=== PATIENT | male | born 1990 | race African-American/Black ===

== ENCOUNTER 2016-12-03 02:19 | Emergency (ER) | payer SELFPAY ==
[~2016-12-03] VITALS: Ht 170.2 cm; Wt 90.9 kg
[~2016-12-03 02:19] MED LIST: AMOXICILLIN 8751 TAB PO; LORTAB 5/500 501 TAB PO; NORCO 325 MG-51 TAB PO; PERCOCET 325 MG1 TA2 PO; TUSS PO; ZITHROMAX 250M250 MG PO
[2016-12-03 02:20] VITALS: BP 117/90; TEMP 96.6
[2016-12-03] MEDS ORDERED: NORCO 325 MG-51 TAB PO (02:58)
[2016-12-03] MEDS ORDERED: MOTRIN 800800 MG/TAB PO (02:58)
[2016-12-03 03:04] VITALS: PULSE 82
== END 2016-12-03 03:04 | disposition home or self-care (01) ==
LOC: COL.ER 02:19
DX: S42.255A Nondisplaced fracture of greater tuberosity of left humerus, initial encounter for closed fracture (principal); W50.0XXA Accidental hit or strike by another person, initial encounter; Y92.89 Other specified places as the place of occurrence of the external cause

== ENCOUNTER → 2016-12-05 | Outpatient (CLI) | payer SELFPAY ==
[~2016-12-05] MED LIST changes: +MOTRIN 800800 MG/TAB PO
== END ==
LOC: COL.RAD 13:52
DX: S42.255A Nondisplaced fracture of greater tuberosity of left humerus, initial encounter for closed fracture (principal)

== ENCOUNTER 2017-01-30 11:15 | Outpatient (RCR) | payer SELFPAY | END 2017-02-15 09:11 | disposition home or self-care (01) | LOC: WSPT 11:15 | DX: S42.92XD Fracture of left shoulder girdle, part unspecified, subsequent encounter for fracture with routine healing (principal); X58.XXXD Exposure to other specified factors, subsequent encounter | CPT/HCPCS: G0283-GP ==

== ENCOUNTER 2017-08-21 10:18 | Emergency (ER) | payer SELFPAY ==
[~2017-08-21] VITALS: Ht 170.2 cm; Wt 90.0 kg
[2017-08-21 10:20] VITALS: BP 125/62; PULSE 84; TEMP 98.3
[2017-08-21] MEDS ORDERED: PREDNISONE20 MG PO (10:33)
[2017-08-21] MEDS ORDERED: ZITHROMAX Z PA250 MG PO (10:33)
== END 2017-08-21 11:07 | disposition home or self-care (01) ==
LOC: COL.ER 10:18
DX: J40 Bronchitis, not specified as acute or chronic (principal); J98.01 Acute bronchospasm

== ENCOUNTER 2017-10-30 11:34 | Emergency (ER) | payer BC ==
[~2017-10-30] VITALS: Ht 170.2 cm; Wt 91.4 kg
[~2017-10-30 11:34] MED LIST changes: +PREDNISONE20 MG PO; +ZITHROMAX Z PA250 MG PO
[2017-10-30 11:44] VITALS: BP 130/74; PULSE 94; TEMP 98.8
[2017-10-30 12:23] LABS: INFLUENZA A NEGATIVE; INFLUENZA B NEGATIVE
[2017-10-30] MEDS ORDERED: TAMIFLU 75MG75 MG PO (12:34)
[2017-10-30] MEDS ORDERED: PREDNISONE20 MG PO (12:34)
== END 2017-10-30 12:50 | disposition home or self-care (01) ==
LOC: COL.ER 11:34
PROVIDERS: Nurse Practitioner
DX: J11.1 Influenza due to unidentified influenza virus with other respiratory manifestations (principal); J45.909 Unspecified asthma, uncomplicated

== ENCOUNTER 2018-08-06 12:06 | Emergency (ER) | payer BC ==
[~2018-08-06] VITALS: Ht 172.7 cm; Wt 90.9 kg
[~2018-08-06 12:06] MED LIST changes: +TAMIFLU 75MG75 MG PO
[2018-08-06 12:11] VITALS: BP 138/76; PULSE 87; TEMP 99.4
[2018-08-06] MEDS ORDERED: ZITHROMAX Z PA250 MG PO (12:51)
[2018-08-06] MEDS ORDERED: PREDNISONE20 MG PO (12:51)
[2018-08-06] MEDS ORDERED: TESSALON P100 MG/CAP PO (13:04)
[2018-08-06] MEDS ORDERED: PROAIR HFA0.09 MG/AC IH (13:04)
== END 2018-08-06 13:23 | disposition home or self-care (01) ==
LOC: COL.ER 12:06
DX: R04.2 Hemoptysis (principal); J45.909 Unspecified asthma, uncomplicated; F17.210 Nicotine dependence, cigarettes, uncomplicated

== ENCOUNTER 2019-07-17 18:45 | Observation (INO) | payer BC ==
[~2019-07-17] VITALS: Ht 170.2 cm; Wt 90.9 kg
[~2019-07-17 18:45] MED LIST changes: +PROAIR HFA0.09 MG/AC IH; +TESSALON P100 MG/CAP PO
[2019-07-17 20:26] LABS: BASO # 0.1 (0.0-0.2); BASO % 0.6 % (0.0-2.0); EOS # 0.1 (0.0-0.7); EOS % 1.1 % (0-4.0); GRAN # 4.9 (1.4-6.5); GRAN % 54.9 % (42.2-75.2); HEMATOCRIT 39.5 % (42.0-52.0); HEMOGLOBIN 13.1 g/dl (13.5-18.0); LYMPH % 34.1 % (20.0-51.0); MEAN CELL VOLUME 86 fl (80.0-100.0); MEAN CORPUSCULAR HEMOGLOBIN 29 pg (27.0-31.0); MEAN CORPUSCULAR HGB CONC 33 g/dl (33.0-37.0); MEAN PLATELET VOLUME 9.8 fl (7.4-10.4); MONO # 0.8 (0.1-0.6); MONO % 8.6 % (1.7-9.3); PLATELET COUNT 221 K/mm3 (130-400); RED BLOOD COUNT 4.58 M/mm3 (4.20-5.60); REDCELL DISTRIBUTION WIDTH-CV 12.6 % (11.5-14.5)
[2019-07-17 20:42] LABS: ALBUMIN 4.6 gm/dL (3.5-5.0); BILIRUBIN,TOTAL 0.3 mg/dL (0.0-1.0); C-REACTIVE PROTEIN 2.6 mg/dL (0.0-0.9); CALCIUM 9.6 mg/dL (8.4-10.2); CREATININE, serum 1.2 (0.66-1.25); POTASSIUM 4.1 mmol/L (3.4-5.0)
[2019-07-18] VITALS (12 sets, daily range): BP systolic 98–157; BP diastolic 58–93; PULSE 66–98; TEMP 97.3–98.6
--- NOTE | 2019-07-18 00:32 | NUR ---
Pt. arrived to the floor via wheelchair. Pt. is A&OX3, assessment complete. INt to lt. ac patent. Pt. reports pain to the RLQ at an 8, will see about pain meds. Pt. denies further needs, call light within reach.
--- NOTE | 2019-07-18 00:50 | NUR ---
PT RESTING IN BED. AT BEDSIDE. PT C/O LEVEL 8 BILA ABD PAIN. SEE MAR FOR MS GIVEN. REVIEWED PLAN OF CARE. NPO STATUS. STARTED NS LT F/A 125CC/HR. CALL LIGHT IN REACH. NO FURTHER QUESTIONS.
--- NOTE | 2019-07-18 06:06 | NUR ---
PT HAS REMAINED NPO THROUGH THE NIGHT. SEE MAR FOR PAIN MED GIVEN.
--- NOTE | 2019-07-18 07:00 | NUR ---
Report received from SAM Kenny. PT in bed resting with at bedside, feeling well, discussed potential surgery for today, student nurse at bedside during shift report, will continue ot monitor.
[2019-07-18 07:08] LABS: BASO # 0.1 (0.0-0.2); BASO % 0.7 % (0.0-2.0); EOS # 0.2 (0.0-0.7); EOS % 2.2 % (0-4.0); GRAN # 2.9 (1.4-6.5); GRAN % 38.6 % (42.2-75.2); HEMATOCRIT 38.7 % (42.0-52.0); HEMOGLOBIN 12.8 g/dl (13.5-18.0); LYMPH # 3.6 (1.2-3.4); LYMPH % 47.6 % (20.0-51.0); MEAN CELL VOLUME 86 fl (80.0-100.0); MEAN CORPUSCULAR HEMOGLOBIN 28 pg (27.0-31.0); MEAN CORPUSCULAR HGB CONC 33 g/dl (33.0-37.0); MONO # 0.8 (0.1-0.6); MONO % 10.2 % (1.7-9.3); PLATELET COUNT 225 K/mm3 (130-400); RED BLOOD COUNT 4.52 M/mm3 (4.20-5.60); REDCELL DISTRIBUTION WIDTH-CV 12.7 % (11.5-14.5)
[2019-07-18 07:15] LABS: ALBUMIN 3.8 gm/dL (3.5-5.0); BILIRUBIN,TOTAL 0.2 mg/dL (0.0-1.0); CALCIUM 8.9 mg/dL (8.4-10.2); CREATININE, serum 1.09 (0.66-1.25); POTASSIUM 3.9 mmol/L (3.4-5.0)
--- NOTE | 2019-07-18 08:36 | NUR ---
Assessment charted. Pt c/o pain at 6/10 to RUQ, student nurse to provide f/u pain medication per request. IVF to L A/C. Resting in bed, will shower prior to procedure. WIll continue ot monitor.
--- NOTE | 2019-07-18 13:00 | NUR ---
PATIENT ARRIVED TO ROOM 348 FROM PACU VIA BED. PATIENT IS DROWSY BUT EASILY AROUSABLE. PATIENT IS A&OX4. POST-OP VSS. LUNG CLEAR UPON AUSCULTATION. BOWEL SOUNDS ACTIVE ALL FOUR QUADRANTS. ABDOMINAL LAP SITES X3 PATTERNMAKER PLASTICS WITH EDGES WELL APPROXIMATED AND DERMABOND IN PLACE. POSITIVE PEDAL PULSES EQUAL BILATERALLY. SCD'S TO BLE. IV FLUIDS INFUSING TO LEFT AC IV VIA GRAVITY FLOW TUBING. CALL LIGHT WITHIN REACH. WILL CONTINUE TO MONITOR.
--- NOTE | 2019-07-18 13:45 | NUR ---
Patient resting in bed with eyes closed. Bed in lowest position, call light within reach. Family at bedside.
--- NOTE | 2019-07-18 14:15 | NUR ---
PATIENT TOLERATING CLEAR LIQUIDS WITHOUT ANY COMPLAINTS OF N/V.
--- NOTE | 2019-07-18 16:45 | NUR ---
POST-OP VITALS COMPLETE. PATIENT SITTING UP IN BED WITH PRESENT AT THE BEDSIDE.
--- NOTE | 2019-07-18 17:03 | NUR ---
Transmission Tester met with the patient and his , Milton (ph#[phone]) to discuss discharge planning. Patient lives in [place] with his and plans to return home upon discharge. Patient receives primary care services from [facility] and obtains his medications at [facility] with no issue. Patient reports independence with ADL's. Patient does not have Advance Directives in place but was interested in taking home the form. SW provided.
--- NOTE | 2019-07-18 18:50 | NUR ---
LEFT AC INT DC'D. TIP INTACT. PATIENT TOLERATED WELL. DISCHARGE INSTRUCTIONS REVIEWED WITH PATIENT AND . ALL QUESTIONS ANSWERED. PATIENT PERSONAL BELONGINGS GATHERED. PATIENT TAKEN TO PERSONAL VEHICLE VIA WHEELCHAIR BY SURGICAL STAFF. PATIENT DISCHARGED.
== END 2019-07-18 19:00 | disposition home or self-care (01) ==
LOC: COL.ER 18:45 → SURG 21:55
PROVIDERS: Emergency Medicine; ADMIT Surgery
DX: K35.80 Unspecified acute appendicitis (principal); F17.290 Nicotine dependence, other tobacco product, uncomplicated; Z79.899 Other long term (current) drug therapy; E66.9 Obesity, unspecified; Z68.31 Body mass index [BMI] 31.0-31.9, adult
CPT/HCPCS: A4216; G0378; J0330; J0696; J1170; J1885; J2250; J2270; J2405; J2704; J3010; J7030; J7120; Q9967

== ENCOUNTER → 2020-06-09 | Outpatient (CLI) | payer BC, OTHER ==
[~2020-06-09] MED LIST changes: +FLEXERIL 1010 MG/TAB PO; +NAPROSYN500 MG PO; +NORCO 325 MG-7.1 TAB PO
== END | disposition still patient (30) ==
LOC: COL.RAD
DX: E04.1 Nontoxic single thyroid nodule (principal)

== ENCOUNTER → 2020-06-29 | Outpatient (CLI) | payer BC, OTHER ==
[~2020-06-29] VITALS: Ht 170.2 cm; Wt 103.3 kg
[2020-06-29 13:44] VITALS: BP 157/93; PULSE 83
[2020-06-29 14:50] VITALS: BP 167/91; PULSE 87
== END ==
LOC: COL.RAD 13:25
DX: E04.1 Nontoxic single thyroid nodule (principal)

== ENCOUNTER → 2020-09-16 | Outpatient (CLI) | payer OTHER, BC | LOC: COL.RAD 10:30 | DX: M47.812 Spondylosis without myelopathy or radiculopathy, cervical region (principal); M48.02 Spinal stenosis, cervical region; E04.1 Nontoxic single thyroid nodule; G56.03 Carpal tunnel syndrome, bilateral upper limbs ==

== ENCOUNTER 2021-03-03 14:55 | Emergency (ER) | payer SELFPAY ==
[~2021-03-03] VITALS: Ht 170.2 cm; Wt 106.8 kg
[2021-03-03] MEDS ORDERED: PROAIR HFA0.09 MG/AC IH (16:57)
[2021-03-03 17:14] VITALS: BP 125/85; PULSE 82; TEMP 98.5
== END 2021-03-03 17:14 | disposition home or self-care (01) ==
LOC: COL.ER 14:55
DX: J45.901 Unspecified asthma with (acute) exacerbation (principal); J06.9 Acute upper respiratory infection, unspecified; Z20.822 Contact with and (suspected) exposure to COVID-19

== ENCOUNTER 2021-04-21 20:30 | Emergency (ER) | payer SELFPAY ==
[~2021-04-21] VITALS: Ht 170.2 cm; Wt 106.8 kg
[2021-04-21 20:41] VITALS: TEMP 97.8
[2021-04-21 21:53] LABS: BASO # 0.1 (0.0-0.2); BASO % 0.7 % (0.0-2.0); EOS # 0.2 (0.0-0.7); EOS % 2.1 % (0-4.0); GRAN # 3.1 (1.4-6.5); GRAN % 44.5 % (42.2-75.2); HEMATOCRIT 44.1 % (42.0-52.0); HEMOGLOBIN 14.7 g/dl (13.5-18.0); LYMPH # 3.1 (1.2-3.4); LYMPH % 43.7 % (20.0-51.0); MEAN CELL VOLUME 84 fl (80.0-100.0); MEAN CORPUSCULAR HEMOGLOBIN 28 pg (27.0-31.0); MEAN CORPUSCULAR HGB CONC 33 g/dl (33.0-37.0); MEAN PLATELET VOLUME 9.4 fl (7.4-10.4); MONO # 0.6 (0.1-0.6); MONO % 8.3 % (1.7-9.3); PLATELET COUNT 266 K/mm3 (130-400); RED BLOOD COUNT 5.25 M/mm3 (4.20-5.60); REDCELL DISTRIBUTION WIDTH-CV 13.8 % (11.5-14.5)
[2021-04-21] MEDS ORDERED: FLEXERIL5 MG PO (22:01)
[2021-04-21 22:09] LABS: ALBUMIN 4.5 gm/dL (3.5-5.0); BILIRUBIN,TOTAL 0.4 mg/dL (0.0-1.0); CALCIUM 9.8 mg/dL (8.4-10.2); CREATININE, serum 1.03 (0.66-1.25); POTASSIUM 4.3 mmol/L (3.4-5.0)
[2021-04-22] MEDS ORDERED: ANTIVERT 25MG25 MG PO (00:40)
[2021-04-22] MEDS ORDERED: MUCINEX 60600 MG/TA1 PO (00:40)
[2021-04-22 00:51] VITALS: BP 120/88; PULSE 98
== END 2021-04-22 00:55 | disposition home or self-care (01) ==
LOC: COL.ER 20:30
PROVIDERS: Emergency Medicine
DX: H93.12 Tinnitus, left ear (principal); J06.9 Acute upper respiratory infection, unspecified; R51.9 Headache, unspecified; R42 Dizziness and giddiness; F17.210 Nicotine dependence, cigarettes, uncomplicated; Z20.822 Contact with and (suspected) exposure to COVID-19
CPT/HCPCS: J1100; J1200; J1885; J2765; J7030